=== PATIENT | female | born 1995 | race Hispanic/Latino ===

== ENCOUNTER → 2018-12-13 | Day surgery (SDC) | payer BC ==
[~2018-12-13] MED LIST: ACETAMINOPHEN 1000 MG/100 ML 100 ML IV ONE; ANTIBIOTIC PO; BUPIVACAINE 0.25% 30ML SDV INJ ONE; DEXAMETHASONE SOD PHOS INJ 4 MG/ML VIAL ONE; FENTANYL CITRATE/PF 100MCG/2 ML INJ ONE; FOLIC ACID1 MG PO; GLYCOPYRROLATE INJ 1MG/ 5 ML SYR ONE; KETOROLAC TROMETHAMINE 30 MG/ML VIAL ONE; LIDOCAINE HCL 2% LOCAL INJ 5 ML SDV VIAL INJ ONE; MIDAZOLAM HCL 2 MG/2 ML VIAL ONE; NEOSTIGMINE 5 MG/5ML SYR ONE; ONDANSETRON HCL INJ 2MG/ML 2ML 2 MG/ML VIAL ONE; OXYMETAZOLINE HCL 0.05% NAS 1 SPRAY BTL ONE; PROBIOTIC & AC1 EACH PO; PROPOFOL IV EMULSION 10 MG/ML 20 ML VIAL ONE; ROCURONIUM BROMIDE 10 MG/ML 5ML VIAL ONE; SEVOFLURANE INHAL SOLN 250 ML PEN BTL ONE; VIT B12 PO; VIT E PO
--- NOTE | 2018-12-13 08:22 | Operative Report ---
DATE OF PROCEDURE: December 13, 2018 PREOPERATIVE DIAGNOSES 1. Chronic adenotonsillitis. 2. Adenotonsillar hypertrophy. POSTOPERATIVE DIAGNOSES 1. Chronic adenotonsillitis. 2. Adenotonsillar hypertrophy. PROCEDURE: Tonsillectomy and adenoidectomy. SIGNIFICANT FINDINGS: Tonsils 3+/3+ with scarred tonsillar beds. Adenoids are mildly hypertrophied. OIL FIELD WORKER: None ANESTHESIA: General endotracheal tube anesthesia. SPECIMENS REMOVED: Tonsils (adenoids were coblated). ESTIMATED BLOOD LOSS: Less than 1 mL. COMPLICATIONS: None. INDICATIONS: The patient is a 23-year-old Latin female with a 20-year history of frequent and intermittent throat pain, odynophagia, fever, malaise, enlarged tender tonsillar lymphadenopathy, enlarged erythematous exudative tonsils. Patient has experienced more than 4 episodes in the past 6 months. She has been refractory to multiple courses of antibiotics. She is a nonsmoker. She had has no previous throat or neck surgery. Her tonsils are 3+/3+ bilaterally and scarred. She is scheduled for tonsillectomy and adenoidectomy for the treatment of chronic adenotonsillitis and adenotonsillar hypertrophy. Risks and complications of the procedures were thoroughly discussed with patient, and they include infection, bleeding, scarring, failure to improve, need for additional operations, persistent throat infections and throat pain, damage to teeth, gums, tongue, and lips, chronic throat pain, voice changes, numbness of the tongue, inability to taste, leakage of fluid through the nose when drinking liquids, scarring of the pharynx resulting in permanent worse nasal obstruction, need for blood transfusions, damage to surrounding nerves, blood and muscles. She fully understands and gives consent. PROCEDURE: Patient was taken to the operating room and placed supine on the operating table where general anesthesia was achieved through orotracheal intubation. Eyes were taped. Shoulder roll was placed. Head and body were draped. Table was turned 90 degrees with the head towards the surgeon. Decadron was administered. Bashir-Jose Angel mouth gag was inserted without difficulty and placed into suspension on a James stand. There was no evidence of bifid uvula, diastasis of the muscular uvulae or notched hard palate. Red rubber catheters were then inserted into the nose and brought out through the mouth to retract the soft palate. Examination of the nasopharynx with the laryngeal mirror revealed the adenoids to be mildly hypertrophied. Tonsils were 3+/3+ bilaterally. The left tonsil was grasped with a tonsillar Allis clamp and was removed with the ArthroCare Coblator on a setting of 6 on cut mode taking care to stay right on the capsule of the tonsil. Right tonsil was removed in the same way. Both tonsillar beds were significantly scarred. Hemostasis was obtained with the Coblator on a setting of 3 and coag mode. Following this, the adenoids were then removed with the ArthroCare Coblator on a setting of 8 on cut mode taking care to avoid trauma to the torus tubarius bilaterally. Hemostasis was obtained with the Coblator on a setting of 3 on a coag mode. Following this, no bleeding was seen despite Valsalva maneuver. Injection with 3 mL of 0.25% plain Marcaine was injected into the free edges of the anterior and posterior tonsillar pillars. Thorough irrigation was then performed. Stomach contents was suction with an NG tube. The red rubber catheters and Bashir-Jose Angel mouth gag were then removed without difficulty revealing no trauma to the teeth, gums, tongue, and lips. Patient was awakened in the operating room, extubated and taken to the recovery room in good condition. Job#: [id number] [employer]
[2018-12-13 09:05] VITALS: BP 100/81
== END | disposition home or self-care (01) ==
LOC: OR 05:24
PROVIDERS: ATTEND Otolaryngology
DX: J35.03 Chronic tonsillitis and adenoiditis (principal); T78.40XA Allergy, unspecified, initial encounter; X58.XXXA Exposure to other specified factors, initial encounter; Z87.891 Personal history of nicotine dependence
CPT/HCPCS: 42821; 81025; 88304; J0131; J1100; J1885; J2001; J2250; J2405; J2704; J3490